=== PATIENT | male | born 2000 | race Two or more races ===

== ENCOUNTER 2019-11-08 04:36 | Emergency (ER) | payer MEDICAID, OTHER ==
[~2019-11-08] VITALS: Ht 162.6 cm; Wt 65.8 kg
== END 2019-11-08 06:03 | disposition left against medical advice (07) ==
LOC: ER 04:36
DX: Z02.89 Encounter for other administrative examinations (principal); Z53.21 Procedure and treatment not carried out due to patient leaving prior to being seen by health care provider; V73.5XXA Driver of bus injured in collision with car, pick-up truck or van in traffic accident, initial encounter; Y93.89 Activity, other specified; Y99.8 Other external cause status; Y92.410 Unspecified street and highway as the place of occurrence of the external cause